=== PATIENT | male | born 1990 | race Caucasian/White ===

== ENCOUNTER 2019-07-31 19:01 | Emergency (ER) | payer OTHER ==
[2019-07-31 19:14] VITALS: BP 128/80
--- NOTE | 2019-07-31 20:04 | UC ---
Laceration HPI - HPI Summary HPI Summary: Patient is a 28yo male presenting with fiance for laceration to forehead after bending over and hitting his head on the counter at 5pm this evening. Notes immediate bleeding that they were able to stop quickly. He placed store bought steri strips and a bandage over the cut. Patient denies pain. Denies headache. Denies LOC. Denies changes in vision. Denies nausea and vomiting. Notes mild lightheadedness but blieves this to be from not eating enough today. - History Of Current Complaint Chief Complaint: UCLaceration Stated Complaint: HIT HIS HEAD Hx Obtained From: Patient, Family/Geopolitics Teacher Onset/Duration: Sudden Onset Pain Intensity: 0 Pain Scale Used: 0-10 Numeric - Allergies/Home Medications Allergies/Adverse Reactions: Allergies Allergy/AdvReac Type Severity Reaction Status Date / Time No Known Allergies Allergy Verified 07/31/19 19:14 Home Medications: Home Medications Multivitamin [Multivitamins] 1 each PO DAILY 07/31/19 [History Confirmed ] PMH/Surg Hx/FS Hx/Imm Hx Previously Healthy: Yes - Surgical History Surgical History: Yes Surgery Procedure, Year, and Place: hernia repair 2004 - Family History Known Family History: Positive: Non-Contributory - Social History Alcohol Use: None Substance Use Type: None Smoking Status (MU): Never Smoked Tobacco Review of Systems All Other Systems Reviewed And Are Negative: No Constitutional: Positive: Negative Skin: Positive: Other - laceration on forehead. Negative: Bruising Eyes: Positive: Negative. Negative: Blurred Vision, Diplopia, Photophobia ENT: Positive: Negative Respiratory: Positive: Negative. Negative: Shortness Of Breath, Cough Cardiovascular: Positive: Negative. Negative: Palpitations, Chest Pain Gastrointestinal: Positive: Negative. Negative: Vomiting, Nausea Musculoskeletal: Positive: Negative Neurological: Positive: Negative. Negative: Headache Psychological: Positive: Negative Physical Exam Triage Information Reviewed: Yes Appearance: Well-Appearing, No Pain Distress, Well-Nourished Vital Signs: Initial Vital Signs Temp 97.9 F 07/31/19 19:10 Pulse 70 07/31/19 19:10 Resp 16 07/31/19 19:10 BP 128/80 07/31/19 19:10 Pulse Ox 100 07/31/19 19:10 Vital Signs Reviewed: Yes Eyes: Positive: Conjunctiva Clear ENT: Positive: Hearing grossly normal Neck exam: Normal Neck: Positive: Supple Respiratory Exam: Normal Respiratory: Positive: Lungs clear, Normal breath sounds, No respiratory distress, No accessory muscle use. Negative: Crackles, Rhonchi, Stridor, Wheezing Cardiovascular Exam: Normal Cardiovascular: Positive: RRR. Negative: Tachycardia Neurological: Positive: Alert Psychological: Positive: Age Appropriate Behavior Skin: Positive: Other - 2cm superficial linear abrasion noted on middle of forehead. no bleeding presently. no ecchymosis noted. no tenderness to palpation. Laceration Course/Dx - Course/Dx Course Of Treatment: Discussed with patient that his wound is superficial and does not require any repair. The wound was cleaned with normal saline and 3 steri strips were placed. Instructed patient to keep the wound clean and dry and that the steri strips will fall off on their own. Educated him on basic wound care and to follow up if he experiences any fever, drainage, excessive bleeding, nausea, or vomiting. Patient voiced understanding and agreed to the treatment plan. - Diagnosis Provider Diagnosis: Forehead abrasion Discharge ED - Sign-Out/Discharge Documenting (check all that apply): Patient Departure All imaging exams completed and their final reports reviewed: No Studies - Discharge Plan Condition: Stable Disposition: HOME Patient Education Materials: Laceration (ED) Referrals: [facility] [Outside] - If Needed Additional Instructions: As discussed, keep the wound clean and dry for the first 24-48 hours. The steri strips will fall off on their own, or you may replace them if you bleed through them. The wound is superficial and should heal nicely. You may experience bruising over the next few days, but that will heal as well. Do not apply vaseline until the wound has healed. Return or go to the emergency room if you experience fever, nausea, vomiting, excessive bleeding, or drainage from the wound. - Billing Disposition and Condition Condition: STABLE Disposition: Home
== END 2019-07-31 20:04 | disposition home or self-care (01) ==
LOC: UCEAST 19:01
DX: S00.81XA Abrasion of other part of head, initial encounter (principal); W22.8XXA Striking against or struck by other objects, initial encounter; Y92.9 Unspecified place or not applicable
CPT/HCPCS: 99201; G0463